=== PATIENT | female | born 1950 | race Caucasian/White ===

== ENCOUNTER 2018-01-17 16:46 | Emergency (ER) | payer MEDICARE, BC ==
--- NOTE | 2018-01-17 17:03 | ER Document Report ---
ED Medical Screen (RME) - General Chief Complaint: Fall Stated Complaint: LEFT ANKLE PAIN Time Seen by Provider: 01/17/18 17:01 Mode of Arrival: Wheelchair Information source: Patient TRAVEL OUTSIDE OF THE [place] 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 No LOC, no neck pain - Related Data Allergies/Adverse Reactions: Sulfa (Sulfonamide Antibiotics) Allergy (Verified 01/17/18 16:47) Past Medical History Renal/ Medical History: Denies: Hx Peritoneal Dialysis Physical Exam - Vital signs Vitals: Temp Pulse Resp BP Pulse Ox 97.8 F 83 16 142/74 H 97 01/17/18 16:50 01/17/18 16:50 01/17/18 16:50 01/17/18 16:50 01/17/18 16:50 Course - Vital Signs Vital signs: Temp Pulse Resp BP Pulse Ox 97.8 F 83 16 142/74 H 97 01/17/18 16:50 01/17/18 16:50 01/17/18 16:50 01/17/18 16:50 01/17/18 16:50
--- NOTE | 2018-01-17 17:48 | RADIOLOGY REPORT (SQ) ---
EXAM DESCRIPTION: ANKLE LEFT COMPLETE; FOOT LEFT COMPLETE COMPLETED DATE/TIME: 01/17/2018 5:24 pm REASON FOR STUDY: fall COMPARISON: None. EXAM PARAMETERS: NUMBER OF VIEWS: Six views. TECHNIQUE: AP, lateral and oblique radiographic images acquired of the left foot and ankle LIMITATIONS: None. FINDINGS: MINERALIZATION: Normal. BONES: Calcaneal compression fracture. 1 cm avulsion fracture from the lateral aspect of the distal fibula -lateral malleolus. No Dislocation. JOINTS: No significant effusion. SOFT TISSUES: Moderate significant soft tissue swelling. No radiopaque foreign body. OTHER: No other significant finding. IMPRESSION: Calcaneal compression fracture. 1 cm avulsion fracture from the lateral aspect of the d istal fibula -lateral malleolus. No Dislocation. TECHNICAL DOCUMENTATION: JOB ID: [id number] [place]-72 2010 [employer]- All Rights Reserved Reading location - IP/workstation name: [email or web address]
--- NOTE | 2018-01-17 17:48 | RADIOLOGY REPORT (SQ) ---
EXAM DESCRIPTION: ANKLE LEFT COMPLETE; FOOT LEFT COMPLETE COMPLETED DATE/TIME: 01/17/2018 5:24 pm REASON FOR STUDY: fall COMPARISON: None. EXAM PARAMETERS: NUMBER OF VIEWS: Six views. TECHNIQUE: AP, lateral and oblique radiographic images acquired of the left foot and ankle LIMITATIONS: None. FINDINGS: MINERALIZATION: Normal. BONES: Calcaneal compression fracture. 1 cm avulsion fracture from the lateral aspect of the distal fibula -lateral malleolus. No Dislocation. JOINTS: No significant effusion. SOFT TISSUES: Moderate significant soft tissue swelling. No radiopaque foreign body. OTHER: No other significant finding. IMPRESSION: Calcaneal compression fracture. 1 cm avulsion fracture from the lateral aspect of the d istal fibula -lateral malleolus. No Dislocation. TECHNICAL DOCUMENTATION: JOB ID: [id number] [place]-72 2010 [employer]- All Rights Reserved Reading location - IP/workstation name: [email or web address]
[2018-01-17] MEDS ORDERED: OXYCODONE-ACETAMINOPHEN 5-325 MG TABLET PO ONE (19:15)
[2018-01-17] MEDS ORDERED: ACETAMINOPHEN 325 MG TABLET PO ONE (19:18)
--- NOTE | 2018-01-17 19:18 | ER Document Report ---
ED Fall - General Chief Complaint: Fall Stated Complaint: LEFT ANKLE PAIN Time Seen by Provider: 01/17/18 17:01 Mode of Arrival: Wheelchair Information source: Patient Notes: 67-year-old female presented to ED for complaint of pain to her left foot and ankle. She states she fell 10 feet off a ladder while trimming trees outside just prior to injury. Patient is alert and oriented respirations regular and unlabored speaking in full sentences unable to bear weight on the left foot and ankle. Patient denies back and neck pain. TRAVEL OUTSIDE OF THE [place] IN LAST 30 DAYS: No - HPI Occurred: Just prior to arrival Where: Home, Outdoors Context: Slipped, Fell from height - And feet Associated symptoms: None Location of injury/pain: Ankle, Foot Quality of pain: Throbbing Severity: Moderate Pain Level: 4 - Related data Allergies/Adverse Reactions: Sulfa (Sulfonamide Antibiotics) Allergy (Verified 01/17/18 16:47) Past Medical History - General Information source: Patient - Social History Smoking Status: Current Every Day Smoker Cigarette use (# per day): Yes - 1/3 pack/day Chew tobacco use (# tins/day): No Smoking Education Provided: Yes - 4 minutes Frequency of alcohol use: Social Drug Abuse: None Occupation: Retired Lives with: Family Family History: Reviewed & Not Pertinent Patient has suicidal ideation: No Patient has homicidal ideation: No - Past Medical History Cardiac Medical History: Reports: None Pulmonary Medical History: Reports: None EENT Medical History: Reports: None Neurological Medical History: Reports: None Endocrine Medical History: Reports: None Renal/ Medical History: Reports: None Malignancy Medical History: Reports: None GI Medical History: Reports: None Musculoskeletal Medical History: Reports None Skin Medical History: Reports None Psychiatric Medical History: Reports: None Traumatic Medical History: Reports: None Infectious Medical History: Reports: None Surgical Hx: Negative Past Surgical History: Reports: None - Immunizations Immunizations up to date: Yes Review of Systems - Review of Systems Constitutional: No symptoms reported EENT: No symptoms reported Cardiovascular: No symptoms reported Respiratory: No symptoms reported Gastrointestinal: No symptoms reported Genitourinary: No symptoms reported Female Genitourinary: No symptoms reported Musculoskeletal: Ankle swelling - Swelling ecchymosis and pain to the left ankle and foot Skin: No symptoms reported Hematologic/Lymphatic: No symptoms reported Neurological/Psychological: No symptoms reported Physical Exam - Vital signs Vitals: Temp Pulse Resp BP Pulse Ox 97.8 F 83 16 142/74 H 97 01/17/18 16:50 01/17/18 16:50 01/17/18 16:50 01/17/18 16:50 01/17/18 16:50 Interpretation: Normal - General General appearance: Appears well, Alert - HEENT Head: Normocephalic, Atraumatic Eyes: Normal Pupils: PERRL - Respiratory Respiratory status: No respiratory distress Chest status: Nontender Breath sounds: Normal Chest palpation: Normal - Cardiovascular Rhythm: Regular Heart sounds: Normal auscultation Murmur: No - Abdominal Inspection: Normal Distension: No distension Bowel sounds: Normal Tenderness: Nontender Organomegaly: No organomegaly - Back Back: Normal, Nontender - Extremities General upper extremity: Normal ROM, Normal temperature General lower extremity: Normal temperature Arm: Tender, Abrasion Elbow: Abrasion, Ecchymosis. No: Instability, Joint effusion, Laceration, Limited ROM Hip: Abrasion, Ecchymosis Thigh: Abrasion Knee: Abrasion, Ecchymosis Calf: Normal, Nontender Ankle: Tender, Ecchymosis, Edema, Limited ROM, Unable to bear weight. No: Instability, Laceration Foot: Tender, Deformity, Ecchymosis, No evidence of FB, Unable to bear weight - Neurological Neuro grossly intact: Yes Cognition: Normal Orientation: AAOx4 [place] Coma Scale Eye Opening: Spontaneous Reynaldo Coma Scale Verbal: Oriented Reynaldo Coma Scale Motor: Obeys Commands Reynaldo Coma Scale Total: 15 Speech: Normal Motor strength normal: LUE, RUE, LLE, RLE Sensory: Normal - Psychological Associated symptoms: Normal affect, Normal mood - Skin Skin Temperature: Warm Skin Moisture: Dry Skin Color: Normal Course - Re-evaluation Re-evalutation: 01/18/18 00:54 X-rays discussed with patient and Dr. Mason was consulted about 2029. He stated the patient needed a well-padded short posterio leg as well as a stirrup splint applied and then patient was to have no weightbearing at all until seen by orthopedics. Patient to elevate her foot on at least 7 pillows to keep it well elevated to reduce the swelling. Patient does have a cake calcaneal fracture. This was also CTs which showed it was a very comminuted fracture. She also had an avulsion fracture to the lateral malleolus left fibula distal. - Vital Signs Vital signs: Temp Pulse Resp BP Pulse Ox 97.5 F 70 17 147/73 H 96 01/17/18 20:47 01/17/18 20:47 01/17/18 20:47 01/17/18 20:47 01/17/18 20:47 - Diagnostic Test Radiology reviewed: Image reviewed, Reports reviewed - Consults smith Time consulted: 20:30 Reason for consultation: 01/17/18 20:39 Comminuted fracture of the left calcaneus Consulted provider: follow-up in office Procedures - Immobilization Left Foot Time completed: 20:39 Immobilizer type: Ankle stirrup, Short Leg Posterior Performed by: PCT Post-Proc Neuro Vasc Exam: Normal Discharge - Discharge Clinical Impression: left comminuted calcaneal fracture, Abrasions of multiple sites Fall from ladder Qualifiers: Encounter type: initial encounter Qualified Code(s): W11.XXXA - Fall on and from ladder, initial encounter Condition: Stable Disposition: HOME, SELF-CARE Additional Instructions: Fracture Calcaneus You have a fracture of the calcaneus (heel bone). This type of fracture tends to swell a great deal. It is usually quite painful. Many fractures of the calcaneus need an operation to heal properly. Elevate and ice pack the heel area. Do not walk on the injured foot (use crutches). If a splint was put on, keep the splint in place. Be sure to follow up for further care as instructed. If the toes become swollen, discolored, or numb, loosen the wrapping. If the symptoms don't go away, return at once. Come back if there is increasingly severe pain. Abrasions An abrasion is a scraping injury of the skin. Some scarring may result. The seriousness of an abrasion is not always obvious at first. Hidden tissue damage may be present and infection may occur despite proper care. Complete healing may take from ten days to as long as a month. The healing time depends on the depth of the abrasion, and on the amount of crushing of underlying tissues from the injury. Keep the wound and dressing clean. Do not shower or bathe the area until okayed by the doctor. If the dressing gets wet, remove it and blot the wound dry, then reapply a clean dressing. Dressings should be changed every day. Sunscreen should be used for six months after the skin is healed. If any signs of infection occur (swelling, redness, increasing tenderness, red streaks, profuse purulent drainage from the abrasion, tender lumps in the armpit or groin above the abrasion, or fever), see the doctor immediately. Splint Pending Casting Your injury can't be casted until the swelling has subsided. Therefore, a temporary splint has been placed to protect the injury. Full use of an injured area is not possible in a splint. You should follow the doctor's instructions concerning rest, ice, and elevation of the injury. Never do anything which causes pain under the splint. Keep the splint on ALL THE TIME until you return for casting. If there is unexpected severe pain, or numbness, discoloration, or swelling beyond the splint, you should return at once. USE OF CRUTCHES: The doctor has recommended that you not bear weight at this time. You will need to use crutches. Adjust the crutches so the tops come to about two inches under the armpit while you are standing upright. Use your hands -- not your armpits -- to support your weight. To get into a chair, support yourself with one crutch on the injured side. Hold the chair with the other hand, then lower yourself while putting all your weight on the good leg. Going up stairs is `good leg up, step up, then bring up crutches and bad leg.' Down stairs is `bad leg and crutches down, then bring good leg down.' If you develop numbness or swelling in an arm or hand, you are using the crutches incorrectly. Return if you are having any problems with the crutches. ICE & ELEVATION: Apply ice packs frequently against the painful area. Many different schedules are recommended, such as "20 minutes on, 20 minutes off" or "one hour ice, two hours rest." If you need to work, you may need to go longer between ice treatments. You should plan to have the area ice packed AT LEAST one- fourth of the time. The ice should be applied over the wrap, tape, or splint, or over a layer of cloth -- not directly against the skin. Some ice bags have a built-in cloth and can be put directly on the skin. Your injured part should be elevated as much as possible over the next 48 hours. Try to keep the injury above the level of the heart. Avoid use of the injured area. Elevation and rest will decrease the swelling. USE OF [id number] IBUPROFEN: Ibuprofen (Advil, Nuprin, Medipren, Motrin IB) is a medication for fever and pain control. In addition, it has anti- inflammatory effects which may be beneficial, especially in the treatment of injuries. It's best to take ibuprofen with food. Persons with ulcer disease or allergy to aspirin should notify their physician of this before taking ibuprofen. Ibuprofen can be given every four to six hours, for a total of four doses daily. Age Pain or fever dose Antiinflammatory dose 6-8 yr 200 mg (1 tab) 200 mg (1 tab) 9-11 yr 200 mg (1 tab) 200-400 mg (1-2 tab) 11-14 yr 200-400 mg (1-2 tab) 400 mg (2 tab) 15-adult 400 mg (2 tab) 600 mg (3 tab) ORAL NARCOTIC MEDICATION: You have been given a prescription for pain control. This medication is a narcotic. It's best taken with food, as nausea can result if taken on an empty stomach. Don't operate machinery or drive within six hours of taking this medication. Do not combine this medicine with alcohol, or with any medication which can cause sedation (such as cold tablets or sleeping pills) unless you get permission from the physician. Narcotics tend to cause constipation. If possible, drink plenty of fluids and eat a diet high in fiber and fruits. Please be aware that prescription narcotics also have the potential for abuse. People become addicted to these medications because of the general sense of wellbeing that they induce. This feeling along with a significant reduction in tension, anxiety, and aggression provides a stimulating seductive quality to these drugs. Once your pain is under control, we encourage you to discard your unused narcotics. Call social insurance specialist on Friday to schedule a follow-up visit. I have spoken to the orthopedic doctor evaluate who states that you will be seen either Friday or Friday. He said it is extremely important that you do not walk on this foot except to go to the bathroom. Is it is extremely important that this foot be elevated on at least 7 pillows to reduce the swelling. FOLLOW-UP CARE: If you have been referred to a physician for follow-up care, call the physician s office for an appointment as you were instructed or within the next two days. If you experience worsening or a significant change in your symptoms, notify the physician immediately or return to the Emergency Department at any time for re-evaluation. Prescriptions: Oxycodone HCl/Acetaminophen [Percocet 5-325 mg Tablet] 1 tab PO Q4HP PRN #15 tablet PRN Reason: Forms: Elevated Blood Pressure Referrals: RITU MATOS MD [ACTIVE STAFF] - 01/19/18
--- NOTE | 2018-01-17 20:13 | RADIOLOGY REPORT (SQ) ---
EXAM DESCRIPTION: CT LT LOWER EXTREMITY WITHOUT COMPLETED DATE/TIME: 01/17/2018 7:39 pm REASON FOR STUDY: Left calcaneal fracture COMPARISON: None. TECHNIQUE: Axial imaging performed through the left foot with reformatted coronal and sagittal imagi ng windowed for bone and soft tissues. Images saved to PACS. 3D IMAGING: Were 3D images as MIP, SSD, or volume rendering performed at the work station? Yes. All CT scanners at this facility use dose modulation, iterative reconstruction, and/or weight based d osing when appropriate to reduce radiation dose to as low as reasonably achievable (ALARA). [facility]: Dose Right [facility]: CareDose [facility]: Dose Right [facility]: Teradose 4D [facility]: [employer] LIMITATIONS: None. RADIATION DOSE: CT Rad equipment meets quality standard of care and radiation dose reduction techniq ues were employed. CTDIvol: 4.1 mGy. DLP: 95 mGy-cm. mGy. FINDINGS: SOFT TISSUES: No obvious swelling or foreign body. BONES: Highly comminuted calcaneal fracture with fracture lines extending in all planes in involving all portions of the subtalar joint with approximately 1.6 cm of inferior displacement -compression ce ntrally. 1 cm lateral avulsion of the distal fibular metaphysis. No other fractures identified. An kle mortise remains intact. MINERALIZATION: Normal. OTHER: No other significant finding. IMPRESSION: Highly comminuted calcaneal fracture with fracture lines extending in all planes in invo lving all portions of the subtalar joint with approximately 1.6 cm of inferior displacement -compress ion centrally. 1 cm lateral avulsion of the distal fibular metaphysis. No other fractures identifie d. Ankle mortise remains intact. TECHNICAL DOCUMENTATION: JOB ID: [id number] [place]-72 Quality ID # [id number]: Final reports with documentation of one or more dose reduction techniques (e.g., Au tomated exposure control, adjustment of the mA and/or kV according to patient size, use of iterative reconstruction technique) 2010 [employer]- All Rights Reserved Reading location - IP/workstation name: [email or web address]
--- NOTE | 2018-01-17 20:15 | RADIOLOGY REPORT (SQ) ---
EXAM DESCRIPTION: T SPINE AP/LAT COMPLETED DATE/TIME: 01/17/2018 7:48 pm REASON FOR STUDY: fall from ladder COMPARISON: None. NUMBER OF VIEWS: Two views. TECHNIQUE: AP and lateral radiographic images acquired of the thoracic spine. LIMITATIONS: None. FINDINGS: MINERALIZATION: Normal. ALIGNMENT: Normal. No scoliosis. VERTEBRAE: No fracture or bone lesion. Maintained height, normal segmentation. DISCS: Multilevel disc space narrowing with osteophytes. HARDWARE: None in the spine. MEDIASTINUM AND SOFT TISSUES: Normal heart size and aortic contour. No soft tissue abnormality. VISUALIZED LUNG RAMON: Clear. OTHER: No other significant finding. IMPRESSION: SPONDYLOSIS WITHOUT BONE LESION OR FRACTURE. TECHNICAL DOCUMENTATION: JOB ID: [id number] [place]-72 2010 [employer]- All Rights Reserved Reading location - IP/workstation name: [email or web address]
--- NOTE | 2018-01-17 20:16 | RADIOLOGY REPORT (SQ) ---
EXAM DESCRIPTION: L SPINE WHOLE COMPLETED DATE/TIME: 01/17/2018 7:48 pm REASON FOR STUDY: fall from ladder COMPARISON: None. NUMBER OF VIEWS: Five views including obliques. TECHNIQUE: AP, lateral, oblique, and sacral radiographic images acquired of the lumbar spine. LIMITATIONS: None. FINDINGS: MINERALIZATION: Normal. SEGMENTATION: Normal. No transitional anatomy. ALIGNMENT: Normal. VERTEBRAE: Maintained height. No fracture or worrisome bone lesion. DISCS: Multilevel disc space narrowing with osteophytes. POSTERIOR ELEMENTS: Pedicles and facets are intact. No pars defect or posterior arch defects. Facet arthropathy is present. HARDWARE: None in the spine. PARASPINAL SOFT TISSUES: Normal. PELVIS: Intact as visualized. No fractures or worrisome bone lesions. SI joints intact. OTHER: No other significant finding. IMPRESSION: SPONDYLOSIS WITHOUT BONE LESION OR FRACTURE. TECHNICAL DOCUMENTATION: JOB ID: [id number] [place]-72 2010 [employer]- All Rights Reserved Reading location - IP/workstation name: [email or web address]
[2018-01-17 20:48] VITALS: BP 147/73
== END 2018-01-17 21:06 | disposition home or self-care (01) ==
LOC: ER 16:46
PROC: 2W3RX1Z Immobilization of Left Lower Leg using Splint (ICD-10-PCS; principal; 2018-01-17)
DX: S92.002A Unspecified fracture of left calcaneus, initial encounter for closed fracture (principal); M25.572 Pain in left ankle and joints of left foot; W11.XXXA Fall on and from ladder, initial encounter; Y92.009 Unspecified place in unspecified non-institutional (private) residence as the place of occurrence of the external cause; Z88.2 Allergy status to sulfonamides; F17.210 Nicotine dependence, cigarettes, uncomplicated
CPT/HCPCS: 99406; 99284; 73610; 73630; 72110; 72070; 73700; 29515; A9270

== ENCOUNTER 2018-01-30 10:49 | Day surgery (SDC) | payer MEDICARE, BC ==
[2018-01-23 10:20] LABS: HEMOGLOBIN 13.6 g/dL (12.0-15.5); MEAN CORPUSCULAR HEMOGLOBIN 30.3 pg (27.0-33.4); MEAN CORPUSCULAR VOLUME 89 fl (80-97); PLATELET COUNT 346 10^3/uL (150-450); RED BLOOD COUNT 4.49 10^6/uL (3.72-5.28); RED CELL DISTRIBUTION WIDTH 13.2 % (11.5-14.0); WHITE BLOOD COUNT 8.3 10^3/uL (4.0-10.5)
[2018-01-23 10:27] LABS: APPEARANCE,URINE CLEAR; BILIRUBIN,URINE NEGATIVE (NEGATIVE); COLOR,URINE YELLOW; GLUCOSE, URINE NEGATIVE (NEGATIVE); KETONES,URINE NEGATIVE (NEGATIVE); LEUKOCYTE ESTERASE,URINE NEGATIVE (NEGATIVE); NITRITE,URINE NEGATIVE (NEGATIVE); PROTEIN,URINE NEGATIVE (NEGATIVE); URINE SPECIFIC GRAVITY 1.011; UROBILINOGEN,URINE NEGATIVE mg/dL (<2.0)
--- NOTE | 2018-01-23 10:31 | RADIOLOGY REPORT (SQ) ---
EXAM DESCRIPTION: CHEST PA/LATERAL COMPLETED DATE/TIME: 01/23/2018 10:09 am REASON FOR STUDY: PRE-OP COMPARISON: None. EXAM PARAMETERS: NUMBER OF VIEWS: two views TECHNIQUE: Digital Frontal and Lateral radiographic views of the chest acquired. RADIATION DOSE: NA LIMITATIONS: none FINDINGS: LUNGS AND PLEURA: No opacities, masses or pneumothorax. No pleural effusion. MEDIASTINUM AND HILAR STRUCTURES: No masses or contour abnormalities. HEART AND VASCULAR STRUCTURES: Heart normal size. No evidence for failure. BONES: No acute findings. HARDWARE: None in the chest. OTHER: No other significant finding. IMPRESSION: NO SIGNIFICANT RADIOGRAPHIC FINDING IN THE CHEST. TECHNICAL DOCUMENTATION: JOB ID: [id number] [employer]- All Rights Reserved Reading location - IP/workstation name: [email or web address]
[2018-01-23 10:46] LABS: ANION GAP 13 (5-19); BLOOD UREA NITROGEN 15 mg/dL (7-20); CALCIUM 9.7 mg/dL (8.4-10.2); CARBON DIOXIDE 24 mmol/L (22-30); CHLORIDE 103 mmol/L (98-107); GLUCOSE 97 mg/dL (75-110); POTASSIUM 4.4 mmol/L (3.6-5.0); SODIUM 139.6 mmol/L (137-145)
--- NOTE | 2018-01-23 13:17 | EKG REPORT ---
SEVERITY:- OTHERWISE NORMAL ECG - SINUS RHYTHM ATRIAL PREMATURE COMPLEX : Confirmed by: Joseph Rees MD 23-Jan-2018 13:16:37
[~2018-01-30 10:49] MED LIST: CEFAZOLIN 2 GM/D5W RTU 2 GM/50 ML RTUPB IV PRN; LACTATED RINGERS 1000 ML IV PRN; LIDOCAINE 0.5% INJ-PF (5 MG/ML) 50 ML SDV SUBCUT PRN; SUCCINYLCHOLINE CHLORIDE INJ 200 MG/10 ML VIAL ONE
[2018-01-30] MEDS ORDERED: CEFAZOLIN 2 GM/D5W RTU 2 GM/50 ML RTUPB IV ONE (11:12)
[2018-01-30] MEDS ORDERED: SCOPOLAMINE HYDROBROMIDE 1.5 MG PATCH.TD72 ONE (12:29)
[2018-01-30] MEDS ORDERED: ALBUTEROL SULFATE 0.083% NEB 2.5 MG/3 ML AMPUL NEB ONE ×2 (12:36→12:45)
[2018-01-30] MEDS ORDERED: RINGERS SOLUTION,LACTATED 1,000 ML IV ONE (12:45)
[2018-01-30] MEDS ORDERED: HYDROMORPHONE HCL INJ/PF 2 MG/ML AMPULE ONE (14:22)
[2018-01-30] MEDS ORDERED: ONDANSETRON HCL INJ/PF 4 MG/2 ML SDV ONE (14:22)
[2018-01-30] MEDS ORDERED: MIDAZOLAM 2 MG/2 ML INJ ONE (14:22)
[2018-01-30] MEDS ORDERED: PROPOFOL INJ 200 MG/20 ML VIAL IV ONE (14:23)
[2018-01-30] MEDS ORDERED: MEPERIDINE HCL/PF INJ 25 MG/1 ML DISP.SYRIN IV PRN (16:02)
[2018-01-30] MEDS ORDERED: FENTANYL CITRATE INJ/PF 100 MCG/2 ML AMPUL IV PRN ×3 (16:02)
[2018-01-30] MEDS ORDERED: PROMETHAZINE HCL INJ 25 MG/1 ML VIAL IV PRN ×2 (16:02)
[2018-01-30] MEDS ORDERED: MORPHINE SULFATE 10 MG/ML INJ IV PRN (16:02)
[2018-01-30] MEDS ORDERED: DIPHENHYDRAMINE HCL 50 MG/ML VIAL IV PRN (16:02)
[2018-01-30] MEDS ORDERED: FENTANYL CITRATE INJ/PF 100 MCG/2 ML AMPUL ONE (17:16)
[2018-01-30] MEDS ORDERED: BUPIVACAINE HCL 0.5 % INJ/PF 30 ML SDV ONE (17:30)
--- NOTE | 2018-01-30 18:22 | RADIOLOGY REPORT (SQ) ---
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 FLUOROSCOPY TIME: 1.1 minutes 4 images saved to PACS. TECHNIQUE: Intra-operative images acquired during surgical procedure to evaluate progress. NUMBER OF IMAGES: 4 LIMITATIONS: None. FINDINGS: Selected images from plate and screw fixation of calcaneal fracture. Alignment is anatomi c. IMPRESSION: IMAGE(S) OBTAINED DURING PROCEDURE. COMMENT: Quality ID [id number]: Final reports for procedures using fluoroscopy that document radiation exp osure indices, or exposure time and number of fluorographic images (if radiation exposure indices are not available) Please consult full operative report of the attending physician for description of the procedure. TECHNICAL DOCUMENTATION: JOB ID: [id number] [employer]- All Rights Reserved Reading location - IP/workstation name: [email or web address]
--- NOTE | 2018-01-30 18:22 | RADIOLOGY REPORT (SQ) ---
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 FLUOROSCOPY TIME: 1.1 minutes 4 images saved to PACS. TECHNIQUE: Intra-operative images acquired during surgical procedure to evaluate progress. NUMBER OF IMAGES: 4 LIMITATIONS: None. FINDINGS: Selected images from plate and screw fixation of calcaneal fracture. Alignment is anatomi c. IMPRESSION: IMAGE(S) OBTAINED DURING PROCEDURE. COMMENT: Quality ID [id number]: Final reports for procedures using fluoroscopy that document radiation exp osure indices, or exposure time and number of fluorographic images (if radiation exposure indices are not available) Please consult full operative report of the attending physician for description of the procedure. TECHNICAL DOCUMENTATION: JOB ID: [id number] [employer]- All Rights Reserved Reading location - IP/workstation name: [email or web address]
--- NOTE | 2018-01-30 18:23 | Discharge Summary ---
Discharge Summary (SDC) - Discharge Final Diagnosis: ORIF of left calcaneus fracture Date of Surgery: 01/30/18 Discharge Date: 01/30/18 Condition: Good Treatment or Instructions: Keep the extremity elevated. Ice as needed. Ambulate with crutches and nonweightbearing with walking boot on. Okay to remove boot but keep the dressing dry clean and intact during showers. Follow-up in 1-2 weeks. Prescriptions: Ondansetron HCl [Zofran 4 mg Tablet] 1 tab PO Q6HP PRN #14 tablet PRN Reason: Amox Tr/Potassium Clavulanate [Augmentin 875-125 mg Tablet] 1 tab PO BID #20 tablet Oxycodone HCl/Acetaminophen [Percocet 5-325 mg Tablet] 1 - 2 tab PO ASDIR PRN # 30 tablet PRN Reason: Discharge Diet: As Tolerated Respiratory Treatments at Home: Deep Breathing/Coughing Discharge Activity: No Driving, Keep Legs Elevated, No Lifting/Push/Pulling Report the Following to Your Physician Immediately: Shortness of Breath, Nausea , Increase in Pain, Fever over 101 Degrees, Unusual Bleeding, Redness, Swelling , Warmth, Increased Soreness, Drainage-Yellow, Drainage-Allen, Drainage-Green, Drainage-Foul Smelling
--- NOTE | 2018-01-30 18:33 | Operative Report ---
Operative Report DATE OF SURGERY: 01/30/18 PREOPERATIVE DIAGNOSIS: Displaced left calcaneus fracture POSTOPERATIVE DIAGNOSIS: Same OPERATION: ORIF of left calcaneus fracture SURGEON: RITU PARIS ANESTHESIA: GA TISSUE REMOVED OR ALTERED: None COMPLICATIONS: None ESTIMATED BLOOD LOSS: Less than 20 mL INTRAOPERATIVE FINDINGS: As above PROCEDURE: Patient was given preoperative antibiotics in the holding area and then was brought to the operating room where she was successfully induced and given general anesthetic. Patient then was placed in a beanbag in a lateral position and an axillary roll was applied. The left lower extremity tourniquet was applied in the left lower extremity was prepped and draped in a normal sterile surgical fashion. Timeout was done identifying the left calcaneus as the correct site. Esmarch was used to exsanguinate the extremity and the tourniquet was inflated at 300 mmHg. Standard L type incision was then done on the lateral aspect of the calcaneus going from the edge of the Achilles and curving onto the lateral aspect of the foot. There was a clean cut all way down to bone to relieve and elevated as one big flap. Was able to expose and the actual subtalar joint and placed the pin in the talus to reflect and retract the soft tissue. Another pin was placed in the cuboid as well. Once the tissue was reflected I was able then to do a small window in the lateral wall of the calcaneus. I was able then to dissect and visualize the depressed posterior facet fragment. I was able to elevated with a [place] and pin into the subtalar aspect of the talus. C-arm pictures were taken showing the reduction and placement and height and angulation recovered. The same was done with the anterior fragment. We then proceeded to use Hydrocet to fill in the void created from the depressed fracture fragment after reducing anatomically. Hydrocet has set and secured initially with then placed back to the lateral fragment and placed a medium size calcaneal plate. Once we used the C-arm to look at location of placement I was able then to secure the plate using compression screws and and for different positions and pictures were taken. 1 of the screws was drilled into the sustentacular nataliya securing the constant fragment. Lateral view and a Caruso view were taken to show placement of my screws and length of my screws. Once I was satisfied with the reduction and fixation I then proceeded to fill my remaining holes in. As mentioned above. Final images were taken. Irrigation was used to clean the wound and then 0 Vicryl 2-0 Vicryl were used to approximate subcutaneous fat and dermis. 3-0 nylon was used in a interrupted horizontal mattress fashion to approximate the skin edges. Xeroform 4 x 4 dressing and ABD pad was used to and soft roll was used to overwrap the extremity. Overwrapped it with an Noel bandage and then let the tourniquet down at 127 minutes. Drapes were removed and the patient was placed in supine position and extubated and sent to PACU in stable condition. The foot was placed in the walking boot and told to elevate the extremity.
[2018-01-30] MEDS ORDERED: ONDANSETRON HCL INJ/PF 4 MG/2 ML SDV IV PRN (18:58)
[2018-01-30] MEDS ORDERED: OXYCODONE-ACETAMINOPHEN 5-325 MG TABLET PO PRN ×2 (18:58)
[2018-01-30] MEDS ORDERED: OXYCODONE-ACETAMINOPHEN 5-325 MG TABLET ONE (19:02)
[2018-01-30 20:38] VITALS: BP 160/80
== END 2018-01-30 20:15 | disposition home or self-care (01) ==
LOC: OROUT 10:49
PROVIDERS: ATTEND Orthopaedic Surgery
DX: S92.012A Displaced fracture of body of left calcaneus, initial encounter for closed fracture (principal); W11.XXXA Fall on and from ladder, initial encounter; F17.210 Nicotine dependence, cigarettes, uncomplicated; Z79.01 Long term (current) use of anticoagulants; Z01.818 Encounter for other preprocedural examination; Z88.2 Allergy status to sulfonamides
CPT/HCPCS: 93005; 36415; 85027; 80048; 81001; 71046; 73650; 93010; 94640; 28415; C1713 ×10; C1781; J2250; J3490; J3010; A9270 ×2; J1170; J0330; J2405; J2704; J0690; 01480